=== PATIENT | male | born 1975 | race Hispanic/Latino ===

== ENCOUNTER 2018-07-29 13:24 | Outpatient (CLI) | payer OTHER ==
--- NOTE | 2018-07-29 15:06 | RAD ---
THREE VIEWS OF THE SINUSES: Comparison: None. History: Sinusitis, dizziness. FINDINGS: Three views of the sinuses shows complete aeration of the frontal, maxillary, ethmoid, and sphenoid s inuses. No significant increased density in the bones is seen to suggest chronic sinus disease. IMPRESSION: No evidence of sinus opacification. POS: CET
== END 2018-07-29 13:25 | disposition home or self-care (01) ==
LOC: BICRAD 13:24
PROVIDERS: ATTEND Internal Medicine
DX: J32.9 Chronic sinusitis, unspecified (principal)
CPT/HCPCS: 70220

== ENCOUNTER 2024-04-09 11:50 | Inpatient (IN) | payer MEDICAID, SELFPAY ==
[2024-04-09 12:33] LABS: #Basophils 0.05 10x3/uL (0.0-0.2); %Basophils 0.7 % (0.0-1.0); %Eosinophils 0.8 % (0.0-10.0); %Lymphocytes 21.9 % (21.0-51.0); %Monocytes 8.1 % (0.0-10.0); %Neutrophils 68.2 % (42.0-75.0); Mean Corpuscular HGB CONC 35.3 g/dL (32.0-36.0); Mean Corpuscular Hemoglobin 31.5 pg (27.0-31.0); Mean Corpuscular Volume 89.3 fL (78.0-98.0); Mean Platelet Volume 10.2 fL (7.4-10.4); Platelet Count 280 10x3/uL (130-400); RBC Distribution Width 13.3 % (11.5-14.5); Red Blood Cell (RBC) Count 5.71 mill/uL (4.70-6.10)
[2024-04-09 12:50] LABS: ALT (SGPT) 23 U/L (8-55); AST (SGOT) 24 U/L (5-34); Albumin 3.5 g/dL (3.5-5.0); Alkaline Phosphatase 77 U/L (40-110); Anion Gap 11 mmol/L (10-20); BUN (Urea Nitrogen) 11 mg/dL (8.9-20.6); Bilirubin, Total 0.5 mg/dL (0.2-1.2); Calc. Creatinine Clearance 0 mL/min (70-130); Calcium 9.2 mg/dL (7.8-10.44); Carbon Dioxide 23 mmol/L (22-29); Chloride 106 mmol/L (98-107); Estimated GFR 109; Globulin 3.8 g/dL (2.4-3.5); Glucose 128 mg/dL (70-105); Magnesium 1.9 mg/dL (1.6-2.6); Potassium 3.9 mmol/L (3.5-5.1); Protein, Total 7.3 g/dL (6.0-8.3); Sodium 136 mmol/L (136-145)
[2024-04-09 12:55] LABS: Troponin I 0.026 ng/mL (< 0.028)
[2024-04-09] MEDS ORDERED: Acetaminophen 325 MG TAB PO PRN (15:33)
[2024-04-09 16:10] LABS: Magnesium 1.9 mg/dL (1.6-2.6)
[2024-04-09 16:15] LABS: Troponin I 0.031 ng/mL (< 0.028)
[2024-04-09 18:47] LABS: Troponin I 0.036 ng/mL (< 0.028)
[2024-04-09 19:33] VITALS: BMI 29.1
[2024-04-09] MEDS ORDERED: Carvedilol 3.125 MG TAB PO SCH (21:00)
[2024-04-09] MEDS: Famotidine 20 MG TAB PO SCH (21:50)
[2024-04-10 05:15] LABS: Anion Gap 12 mmol/L (10-20); BUN (Urea Nitrogen) 12 mg/dL (8.9-20.6); Calc. Creatinine Clearance 132 mL/min (70-130); Calcium 8.9 mg/dL (7.8-10.44); Carbon Dioxide 23 mmol/L (22-29); Cardiac Risk 4.8 (Less than 4.5); Chloride 106 mmol/L (98-107); Cholesterol 216 mg/dl (< 200 Desired); Estimated GFR 108; Glucose 106 mg/dL (70-105); HDL Cholesterol 45 mg/dL (>60 Neg Risk); LDL Cholesterol, Calculated 141 mg/dL; Potassium 3.7 mmol/L (3.5-5.1); Sodium 137 mmol/L (136-145); Triglycerides 152 mg/dL (Less than 150)
[2024-04-10] MEDS ORDERED: Iopamidol-370 76% 500 ML MDV (1 ML CHARGE) ONE (11:51)
[2024-04-10] MEDS: Enoxaparin 40 MG (0.4 mL) SYRINGE SC SCH (22:15)
[2024-04-10] MEDS: Lisinopril 2.5 MG TAB PO SCH (22:15)
[2024-04-11 04:04] LABS: #Basophils 0.05 10x3/uL (0.0-0.2); %Basophils 0.7 % (0.0-1.0); %Eosinophils 1.5 % (0.0-10.0); %Lymphocytes 30.8 % (21.0-51.0); %Monocytes 8.4 % (0.0-10.0); %Neutrophils 58.2 % (42.0-75.0); Hemoglobin 16.1 g/dL (14.0-18.0); Mean Corpuscular HGB CONC 34.3 g/dL (32.0-36.0); Mean Corpuscular Hemoglobin 31.6 pg (27.0-31.0); Mean Corpuscular Volume 92.2 fL (78.0-98.0); Mean Platelet Volume 10.3 fL (7.4-10.4); Platelet Count 255 10x3/uL (130-400); RBC Distribution Width 13.6 % (11.5-14.5)
[2024-04-11 04:37] LABS: ALT (SGPT) 20 U/L (8-55); AST (SGOT) 15 U/L (5-34); Albumin 3.2 g/dL (3.5-5.0); Alkaline Phosphatase 76 U/L (40-110); Anion Gap 15 mmol/L (10-20); BUN (Urea Nitrogen) 14 mg/dL (8.9-20.6); Bilirubin, Total 0.3 mg/dL (0.2-1.2); Calc. Creatinine Clearance 144 mL/min (70-130); Calcium 8.7 mg/dL (7.8-10.44); Carbon Dioxide 21 mmol/L (22-29); Chloride 107 mmol/L (98-107); Estimated GFR 111; Globulin 3.1 g/dL (2.4-3.5); Glucose 130 mg/dL (70-105); Magnesium 2.2 mg/dL (1.6-2.6); Potassium 3.6 mmol/L (3.5-5.1); Protein, Total 6.3 g/dL (6.0-8.3); Sodium 139 mmol/L (136-145)
[2024-04-11] MEDS: cefTRIAXone\\ROCEPHIN 1 GM in Sodium Chloride 0.9% 100 ML IVPB SCH (10:19)
[2024-04-11] MEDS: Azithromycin 500 MG in Sodium Chloride 0.9% 250 ML 250 ML IVPB SCH (11:11)
[2024-04-12 03:58] LABS: #Basophils 0.06 10x3/uL (0.0-0.2); %Basophils 0.7 % (0.0-1.0); %Lymphocytes 29.7 % (21.0-51.0); %Neutrophils 60.2 % (42.0-75.0); Hematocrit 49.8 % (42.0-52.0); Mean Corpuscular HGB CONC 34.1 g/dL (32.0-36.0); Mean Corpuscular Volume 93.6 fL (78.0-98.0); Mean Platelet Volume 11.8 fL (7.4-10.4); Platelet Count 216 10x3/uL (130-400); Red Blood Cell (RBC) Count 5.32 mill/uL (4.70-6.10)
[2024-04-12 04:23] LABS: Anion Gap 14 mmol/L (10-20); BUN (Urea Nitrogen) 11 mg/dL (8.9-20.6); Calc. Creatinine Clearance 144 mL/min (70-130); Carbon Dioxide 21 mmol/L (22-29); Chloride 108 mmol/L (98-107); Estimated GFR 111; Glucose 98 mg/dL (70-105); Potassium 3.8 mmol/L (3.5-5.1); Sodium 139 mmol/L (136-145)
[2024-04-12] MEDS ORDERED: Regadenoson 0.4 MG/5 ML SYRINGE ONE (11:18)
[2024-04-12] MEDS: Atorvastatin Calcium 40 MG TAB PO SCH (21:04)
[2024-04-13 04:29] LABS: #Basophils 0.07 10x3/uL (0.0-0.2); %Basophils 0.8 % (0.0-1.0); %Eosinophils 1.5 % (0.0-10.0); %Lymphocytes 32.5 % (21.0-51.0); %Monocytes 8.8 % (0.0-10.0); %Neutrophils 56.2 % (42.0-75.0); Hematocrit 47.5 % (42.0-52.0); Hemoglobin 16.2 g/dL (14.0-18.0); Mean Corpuscular HGB CONC 34.1 g/dL (32.0-36.0); Mean Corpuscular Volume 90.8 fL (78.0-98.0); Mean Platelet Volume 10.4 fL (7.4-10.4); Platelet Count 272 10x3/uL (130-400); RBC Distribution Width 13.7 % (11.5-14.5); Red Blood Cell (RBC) Count 5.23 mill/uL (4.70-6.10)
[2024-04-13 05:04] LABS: Anion Gap 13 mmol/L (10-20); BUN (Urea Nitrogen) 14 mg/dL (8.9-20.6); Calc. Creatinine Clearance 132 mL/min (70-130); Calcium 9.2 mg/dL (7.8-10.44); Carbon Dioxide 25 mmol/L (22-29); Chloride 106 mmol/L (98-107); Estimated GFR 110; Glucose 96 mg/dL (70-105); Sodium 140 mmol/L (136-145)
[2024-04-13] MEDS: Empagliflozin 10 MG TAB PO SCH (08:59)
[2024-04-14 11:30] VITALS: TEMP 97.4
[2024-04-14 12:59] VITALS: BP 138/81
== END 2024-04-14 14:47 | disposition home or self-care (01) | DRG 291 ==
LOC: ERS 11:50 → ERHOLD 15:00 → 2SW 20:14
PROVIDERS: ADMIT Internal Medicine; ATTEND Internal Medicine
DX: I11.0 Hypertensive heart disease with heart failure (principal); I50.43 Acute on chronic combined systolic (congestive) and diastolic (congestive) heart failure; J96.01 Acute respiratory failure with hypoxia; J18.9 Pneumonia, unspecified organism; G47.33 Obstructive sleep apnea (adult) (pediatric); F10.20 Alcohol dependence, uncomplicated; E78.5 Hyperlipidemia, unspecified; I42.0 Dilated cardiomyopathy; Z87.891 Personal history of nicotine dependence; Z91.148 Patient's other noncompliance with medication regimen for other reason; Z71.41 Alcohol abuse counseling and surveillance of alcoholic
CPT/HCPCS: 36415; 71045; 71275; 78452; 80048; 80053; 80061; 83735; 83880; 84443; 84484; 85025; 93005; 93017; 93306; 93798; 97139; J0456; J0696; J1650; J2785; J3490; J7050; Q9967